=== PATIENT | male | born 1945 | race African-American/Black ===

== ENCOUNTER → 2019-02-10 | Outpatient (CLI) | payer MEDICARE, OTHER ==
[2015-04-06 14:25] VITALS: BP 164/89
[~2019-02-10] MED LIST: AMLO5TAB4 PO; ASPI-482 PO; BUDE10.2 IH; CLOP75TA57 PO; LORA0.5T96 PO; OXYC1TAB15 PO; VALS1TAB8 PO
--- NOTE | 2019-02-10 10:40 | CARD ---
MR#: [id number] Date of Study: 02/10/2019 Ordering Physician: MARIELENA ECKERT, Referring Physician: MARIELENA ECKERT Tech: Raiza Orozco RDCS APPROVED REPORT EXAM: Two-dimensional and M-mode echocardiogram with Doppler and color Doppler. Other Information Quality : Technically LimitedHR: 82bpm Rhythm : NSRTechnically limited study due to CABG. INDICATION CAD Surgery/Intervention CABG: Date: 1997 2D DIMENSIONS RVDd2.9 (2.9-3.5cm)Left Atrium(2D)3.5 (1.6-4.0cm) IVSd1.2 (0.7-1.1cm)Aortic Root(2D)3.0 (2.0-3.7cm) LVDd4.3 (3.9-5.9cm)LVOT Diameter1.9 (1.8-2.4cm) PWd0.9 (0.7-1.1cm)LVDs3.5 (2.5-4.0cm) FS (%) 19.8 %SV34.7 ml LVEF(%)42.0 (>50%) M-Mode DIMENSIONS Left Atrium(MM)3.36 (2.5-4.0cm)Aortic Root3.25 (2.2-3.7cm) Aortic Valve AoV Peak Barrett.102.7cm/sAoV VTI20.9cm AO Peak GR.4.2mmHgLVOT Peak Barrett.101.7cm/s LVOT VTI 21.04cmAO Mean GR.2mmHg ALFREDO (VMAX)2.74bh4ORM (VTI)2.78cm2 Mitral Valve MV E Bpxupxak26.5cm/sMV DECEL EUUK007zb MV A Dbokwasr46.7cm/sMV LHQ44bh E/A Ratio1.1MVA (PHT)6.36cm2 Tricuspid Valve TR P. Chfubzoj309hi/sRAP SQVFBAGK5nyQu TR Peak Gr.45lkFsTMHS06miHl LEFT VENTRICLE The left ventricle is normal size. Proximal septal thickening is noted. Left ventricle systolic funct ion is low normal. The Ejection Fraction is 45%. There is anterior and apical hypokinesis. Transmitra l Doppler flow pattern is abnormal. RIGHT VENTRICLE The right ventricle is normal size. There is normal right ventricular wall thickness. The right ventr icular systolic function is normal. ATRIA The left atrium size is normal. The right atrium size is normal. The interatrial septum is intact wit h no evidence for an atrial septal defect or patent foramen ovale as noted on 2-D or Doppler imaging. AORTIC VALVE The aortic valve is not well visualized. Doppler and Color Flow revealed no significant aortic regurg itation. There is no significant aortic valvular stenosis. MITRAL VALVE The mitral valve is thickened but opens well. There is no evidence of mitral valve prolapse. There is no mitral valve stenosis. Doppler and Color-flow revealed mild mitral regurgitation. TRICUSPID VALVE The tricuspid valve is normal in structure and function. Doppler and Color Flow revealed mild tricusp id regurgitation. The PA pressure was estimated at 39 mmHg. There is no tricuspid valve prolapse or v egetation. There is no tricuspid valve stenosis. PULMONIC VALVE The pulmonic valve is not well visualized. GREAT VESSELS The aortic root is normal in size. The ascending aorta is normal in size. The IVC is normal in size a nd collapses >50% with inspiration. PERICARDIAL EFFUSION There is no evidence of significant pericardial effusion. Critical Notification Critical Value: No <Conclusion> Left ventricle systolic function is low normal. The Ejection Fraction is 45%. There is anterior and apical hypokinesis. Technically difficult study. Signed by : Neil Estrada, Electronically Approved : 02/10/2019 10:39:27
== END | disposition home or self-care (01) ==
LOC: ECHO 09:12
PROVIDERS: ATTEND Internal Medicine Cardiovascular Disease
DX: I08.1 Rheumatic disorders of both mitral and tricuspid valves (principal); I25.810 Atherosclerosis of coronary artery bypass graft(s) without angina pectoris
CPT/HCPCS: 93306

== ENCOUNTER → 2019-02-14 | Outpatient (CLI) | payer MEDICARE, OTHER ==
[2015-04-06 14:25] VITALS: BP 164/89
--- NOTE | 2019-02-14 13:38 | RAD ---
MR#: [id number] Date of Study: 02/14/2019 Ordering Physician: MARIELENA ECKERT, Referring Physician: MARIELENA ECKERT, Tech: Jatinder Perez MBA, RDMS, RVT, RDCS, RTR APPROVED REPORT Patient Location: OUT-PATIENT Indications PAD VELOCITY AND DOPPLER WAVEFORM ANALYSIS RIGHT cm/secWaveformSeverity LEFT cm/secWaveform Severity dCFA 194.0MonophasicdCFA 132.0Monophasic Prof Fem Art. 197.0MonophasicProf Fem Art. 114.0Biphasic Fem Art Prox. 138.0MonophasicFem Art Prox. 257.0Biphasic Fem Art Mid. 253.0MonophasicFem Art Mid. 103.0Biphasic Fem Art Dist. 88.0BiphasicFem Art Dist. 64.0Biphasic Pop Art(Fossa) 87.0BiphasicPop Art(AK) 63.0Biphasic RN GASTROENTEROLOGY Prox. 68.0MonophasicPTA Prox. 104.0Biphasic RN GASTROENTEROLOGY Dist. 42.0MonophasicPTA Dist. 83.0Biphasic Per Art Mid. 56.0MonophasicPer Art Mid. 78.0Monophasic AILYN Prox. 66.0MonophasicATA Prox. 29.0Monophasic DPA 22MonophasicDPA 25Monophasic Image Findings Grayscale images of the bilateral lower extremity arterial vessels revealed diffuse plaque. On the right there are mostly monophasic waveforms throughout the arterial course suggestive of more proximal iliac disease. Velocities nonetheless are within normal limits in the EDGE INKER UPPERS and proximal SFA. There is likely a greater than 50% stenosis involving the mid SFA. There is three-vessel runoff below the knee on the right side. On the left side similarly there are mostly monophasic waveforms. There is again likely a greater lynsey n 50% stenosis involving the proximal SFA. Below-knee there is three-vessel runoff with likely greate r than 50% stenosis of the anterior tibial artery. Critical Notification Critical Value: No <Conclusion> 1. 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 Greater than 50% stenosis involving the bilateral SFA 3. Three-vessel runoff bilaterally with likely greater than 75% stenosis involving the left anterior tibial artery. Signed by : Neil Estrada, Electronically Approved : 02/14/2019 13:37:53
== END | disposition home or self-care (01) ==
LOC: US 09:15
PROVIDERS: ATTEND Internal Medicine Cardiovascular Disease
DX: I70.293 Other atherosclerosis of native arteries of extremities, bilateral legs (principal)
CPT/HCPCS: 93925

== ENCOUNTER 2019-04-20 10:17 | Emergency (ER) | payer MEDICARE, MEDICAID ==
[~2019-04-20] VITALS: Ht 172.7 cm; Wt 73.5 kg
[2019-04-20 11:30] VITALS: BP 148/82
--- NOTE | 2019-04-20 12:24 | PHYS DOC ---
Past Medical History Past Medical History: CAD, Depression, Glaucoma, Hypertension, Other Additional Past Medical Histor: manic/depression,JEFFERS Past Surgical History: Other Additional Past Surgical Histo: triple bypass, bilateral stents placed lower ext, bilateral eyes for glauc Alcohol Use: None Drug Use: None Adult General Chief Complaint Chief Complaint: OTHER COMPLAINTS [facility] HPI Patient is a 74 year old [f__sex] who presents with [] Review of Systems Review of Systems Constitutional: Denies fever or chills [] Eyes: Denies change in visual acuity, redness, or eye pain [] HENT: Denies nasal congestion or sore throat [] Respiratory: Denies cough or shortness of breath [] Cardiovascular: No additional information not addressed in HPI [] GI: Denies abdominal pain, nausea, vomiting, bloody stools or diarrhea [] : Denies dysuria or hematuria [] Musculoskeletal: Denies back pain or joint pain [] Integument: Denies rash or skin lesions [] Neurologic: Denies headache, focal weakness or sensory changes [] Endocrine: Denies polyuria or polydipsia [] All other systems were reviewed and found to be within normal limits, except as documented in this note. Allergies Allergies Allergies Coded Allergies Type Severity Reaction Last Updated Verified codeine Allergy Unknown 01/07/14 Yes hydrocodone Allergy Unknown 01/07/14 Yes Physical Exam Physical Exam Constitutional: Well developed, well nourished, no acute distress, non-toxic appearance. [] HENT: Normocephalic, atraumatic, bilateral external ears normal, oropharynx moist, no oral exudates, nose normal. [] Eyes: PERRLA, EOMI, conjunctiva normal, no discharge. [] Neck: Normal range of motion, no tenderness, supple, no stridor. [] Cardiovascular:Heart rate regular rhythm, no murmur [] Lungs & Thorax: Bilateral breath sounds clear to auscultation [] Abdomen: Bowel sounds normal, soft, no tenderness, no masses, no pulsatile masses. [] Skin: Warm, dry, no erythema, no rash. [] Back: No tenderness, no CVA tenderness. [] Extremities: No tenderness, no cyanosis, no clubbing, ROM intact, no edema. [] Neurologic: Alert and oriented X 3, normal motor function, normal sensory function, no focal deficits noted. [] Psychologic: Affect normal, judgement normal, mood normal. [] Current Patient Data Vital Signs Vital Signs Date Time Temp Pulse Resp B/P (MAP) Pulse Ox O2 Delivery O2 Flow Rate FiO2 04/20/19 11:30 82 18 148/82 (104) 92 Room Air 04/20/19 10:26 97.8 97.8 Lab Values Laboratory Tests Test 04/20/19 11:32 Glucose (Fingerstick) 166 mg/dL (70-99) H EKG EKG [] Radiology/Procedures Radiology/Procedures [] Course & Med Decision Making Course & Med Decision Making Pertinent Labs and Imaging studies reviewed. (See chart for details) [] Dragon Disclaimer Dragon Disclaimer This electronic medical record was generated, in whole or in part, using a voice recognition dictation system. Departure Departure Impression: Primary Impression: Encounter for medical screening examination Disposition: 01 HOME, SELF-CARE Condition: STABLE Referrals: ELIZABETH OTTO (PCP) follow up with your doctor as needed this week. Patient Instructions: Medical Screening Exam LEVY AMBROSIO DO Apr 20, 2019 12:24
== END 2019-04-20 12:29 | disposition home or self-care (01) ==
LOC: ER 10:17
DX: R42 Dizziness and giddiness (principal); I25.10 Atherosclerotic heart disease of native coronary artery without angina pectoris; F32.9 Major depressive disorder, single episode, unspecified; I10 Essential (primary) hypertension; Z88.5 Allergy status to narcotic agent
CPT/HCPCS: 82962; 99283

== ENCOUNTER 2020-08-23 13:20 | Emergency (ER) | payer OTHER, MEDICAID ==
[~2020-08-23] VITALS: Ht 170.2 cm; Wt 77.2 kg
[2020-08-23 13:30] VITALS: BP 158/80
[2020-08-23] MEDS ORDERED: ASPIRIN CHEWABLE 81 MG TABLET. PO ONE (13:30)
--- NOTE | 2020-08-23 13:54 | RAD ---
Single AP view of the chest. Comparison: None. Indication: Chest pain Findings: Sternotomy wires and CABG clips are identified. The heart is not enlarged. There is no pneumothorax or effusion. Mild interstitial opacities in the lung bases are seen. Impression: 1. Mild bibasilar interstitial opacities may represent atypical infection versus chronic scarring. Electronically signed by: Sav Farnsworth MD (08/23/2020 1:52 PM) [id number]
== END 2020-08-23 14:05 | disposition left against medical advice (07) ==
LOC: ER 13:20
DX: R07.89 Other chest pain (principal); Z53.21 Procedure and treatment not carried out due to patient leaving prior to being seen by health care provider
CPT/HCPCS: 71045; 93005; 99283